=== PATIENT | male | born 1965 | race Caucasian/White ===

== ENCOUNTER 2024-05-12 16:24 | Observation (INO) | payer OTHER ==
[2024-05-12] MEDS: NITROGLYCERIN SL TABS 0.4 MG TAB SUBLINGUAL STA (16:54)
[2024-05-12] MEDS: ASPIRIN 81 MG PO STA (17:14)
[2024-05-12] MEDS: NITROGLYCERIN OINT 1 INCH/GM PACKET TOPICAL STA (17:15)
[2024-05-12 17:46] LABS: ALT 16 U/L (4-49); AST 18 U/L (17-59); African American GFR (CKD) >90 (>60 ml/min/1.73 sqM); Albumin 4.2 g/dL (3.5-5.0); Alkaline Phosphatase 73 U/L (38-126); Anion Gap 7 mmol/L; Blood Urea Nitrogen 15 mg/dL (9-20); Calcium 9.6 mg/dL (8.4-10.2); Carbon Dioxide 22 mmol/L (22-30); Chloride 106 mmol/L (98-107); Glucose 99 mg/dL (74-99); Magnesium 1.9 mg/dL (1.6-2.3); Non-African American GFR(CKD) >90 (>60 ml/min/1.73 sqM); Partial Thromboplastin Time 24.1 sec (22.0-30.0); Potassium 4.1 mmol/L (3.5-5.1); Prothrombin Time 10.6 sec (10.0-12.5); Sodium 135 mmol/L (137-145); Total Bilirubin 0.5 mg/dL (0.2-1.3); Total Protein 6.4 g/dL (6.3-8.2)
[2024-05-12 18:08] LABS: Basophils # (A) 0.1 k/uL (0-0.2); Basophils % (A) 0 %; Eosinophils # (A) 0.2 k/uL (0-0.7); Eosinophils % (A) 1 %; HCT 51.4 % (39.0-53.0); HGB 16.7 gm/dL (13.0-17.5); Lymphocytes # (A) 2.7 k/uL (1.0-4.8); Lymphocytes % (A) 21 %; MCH 32.4 pg (25.0-35.0); MCHC 32.4 g/dL (31.0-37.0); MCV 99.8 fL (80.0-100.0); Mean Platelet Volume 7.6; Monocytes # (A) 0.6 k/uL (0-1.0); Monocytes % (A) 5 %; Neutrophils # (A) 9.2 k/uL (1.3-7.7); Neutrophils % (A) 72 %; Platelet Count 302 k/uL (150-450); RBC 5.15 m/uL (4.30-5.90); RDW 12.7 % (11.5-15.5); WBC 12.9 k/uL (3.8-10.6)
--- NOTE | 2024-05-12 18:22 | XR ---
EXAMINATION TYPE: XR chest 2V DATE OF EXAM: 05/12/2024 COMPARISON: NONE HISTORY: Chest pain TECHNIQUE: Frontal and lateral views of the chest are obtained. FINDINGS: There is hyperinflation of the lungs and flattening the diaphragms consistent with COPD. The lungs are clear and there is no airspace consolidation or abnormal interstitial density. The heart, pulmonary vasculature, mediastinum and gissell appear normal. The osseous structures are intact IMPRESSION: 1. No acute cardiopulmonary disease. 2. COPD.
[2024-05-12] MEDS ORDERED: NITROGLYCERIN SL TABS 0.4 MG TAB SUBLINGUAL PRN (18:55)
--- NOTE | 2024-05-12 18:55 | ED ---
General Adult HPI - General Chief complaint: Chest Pain Stated complaint: Chest Pain,Sob Time Seen by Provider: 05/12/24 16:40 Source: patient, RN notes reviewed, old records reviewed Mode of arrival: ambulatory Limitations: no limitations - History of Present Illness Initial comments: This is a 58-year-old male who presents to the emergency department complaining of chest pain he states that started earlier today and he also became short of breath with the chest pain. Patient states he has been experiencing some intermittent chest pain for the last couple weeks. Patient describes the chest pain as pressure. Patient states the pain does radiate up to the right side of his neck as well. Patient denies any recent fever chills or cough. Patient states he is a smoker and does have a strong family history of heart disease. Patient denies any abdominal pain. Patient has back pain. Patient [place] any swelling to the legs or calf tenderness. - Related Data Home Medications Medication Instructions Recorded Confirmed No Known Home Medications 05/12/24 05/12/24 Allergies Allergy/AdvReac Type Severity Reaction Status Date / Time No Known Allergies Allergy Verified 05/12/24 17:33 Review of Systems ROS Statement: Those systems with pertinent positive or pertinent negative responses have been documented in the HPI. ROS Other: All systems not noted in ROS Statement are negative. Past Medical History Past Medical History: No Reported History History of Any Multi-Drug Resistant Organisms: None Reported Past Surgical History: No Surgical Hx Reported, Orthopedic Surgery, Tonsillectomy Past Psychological History: No Psychological Hx Reported Smoking Status: Current every day smoker Past Alcohol Use History: None Reported Past Drug Use History: Marijuana General Exam - General Exam Comments Initial Comments: GENERAL: Patient is well-developed and well-nourished. Patient is nontoxic and well- hydrated and is in mild distress. ENT: Neck is soft and supple. No significant lymphadenopathy is noted. Oropharynx is clear. Moist mucous membranes. Neck has full range of motion without eliciting any pain. EYES: The sclera were anicteric and conjunctiva were pink and moist. Extraocular movements were intact and pupils were equal round and reactive to light. Eyelids were unremarkable. PULMONARY: Unlabored respirations. Good breath sounds bilaterally. No audible rales rhonchi or wheezing was noted. CARDIOVASCULAR: There is a regular rate and rhythm without any murmurs gallops or rubs. ABDOMEN: Soft and nontender with normal bowel sounds. SKIN: Skin is clear with no lesions or rashes and otherwise unremarkable. NEUROLOGIC: Patient is alert and oriented x3. Cranial nerves II through XII are grossly intact. Motor and sensory are also intact. Normal speech, volume and content. Symmetrical smile. MUSCULOSKELETAL: Normal extremities with adequate strength and full range of motion. LYMPHATICS: No significant lymphadenopathy is noted PSYCHIATRIC: Normal psychiatric evaluation. Limitations: no limitations Course Vital Signs 05/12/24 05/12/24 05/12/24 16:37 16:52 17:17 Temperature 97.6 F Pulse Rate 79 84 75 Respiratory 18 20 20 Rate Blood Pressure 149/96 157/112 139/90 O2 Sat by Pulse 96 100 98 Oximetry 05/12/24 17:50 Temperature Pulse Rate 68 Respiratory 18 Rate Blood Pressure 117/76 O2 Sat by Pulse 97 Oximetry Medical Decision Making - Medical Decision Making EKG is interpreted by myself EKG shows a sinus rhythm at 72 bpm parables 104 QRS 101 QT interval 375 QTc of 400. There is slight ST segment elevation in leads V2, V3 and V4 which is much more indicative of repolarization Was pt. sent in by a medical professional or institution (, PA, PARKING CONTROL OFFICER, urgent care, hospital, or alf...) When possible be specific @ -No Did you speak to anyone other than the patient for history (EMS, parent, family, police, friend...)? What history was obtained from this source @ -No Did you review nursing and triage notes (agree or disagree)? Why? @ -I reviewed and agree with nursing and triage notes Were old charts reviewed (outside hosp., previous admission, EMS record, old EKG, old radiological studies, urgent care reports/EKG's, alf records)? Report findings @ -No old charts were reviewed Differential Diagnosis (chest pain, altered mental status, abdominal pain women, abdominal pain men, vaginal bleeding, weakness, fever, dyspnea, syncope, headache, dizziness, GI bleed, back pain, seizure, CVA, palpatations, mental health, musculoskeletal)? @ -Differential Chest Pain: Stable Angina, Unstable Angina, STEMI, NSTEMI Aortic Dissection, Pneumothorax, Musculoskeletal, Esophageal Spasm GERD, Cholecystitis, Pancreatitis, Zoster, this is not meant to be an all-inclusive list. EKG interpreted by me (3pts min.). @ -As above X-rays interpreted by me (1pt min.). @ -Chest x-ray shows no acute abnormality CT interpreted by me (1pt min.). @ -None done U/S interpreted by me (1pt. min.). @ -None done What testing was considered but not performed or refused? (CT, X-rays, U/S, labs)? Why? @ -None What meds were considered but not given or refused? Why? @ -None Did you discuss the management of the patient with other professionals (professionals i.e. , PA, PARKING CONTROL OFFICER, lab, RT, psych nurse, elementary school social worker, electrifier operator, teacher, consumer safety officer, case maker)? Give summary @ -I spoke with patient [facility] and they agreed to admit the patient Was smoking cessation discussed for >3mins.? @ -No Was critical care preformed (if so, how long)? @ -No Were there social determinants of health that impacted care today? How? (Homelessness, low income, unemployed, alcoholism, drug addiction, t ransportation, low edu. Level, literacy, decrease access to med. care, long term, rehab)? @ -No Was there de-escalation of care discussed even if they declined (Discuss DNR or withdrawal of care, Hospice)? DNR status @ -No What co-morbidities impacted this encounter? (DM, HTN, Smoking, COPD, CAD, Cancer, CVA, ARF, Chemo, Hep., AIDS, mental health diagnosis, sleep apnea, morbid obesity)? @ -None Was patient admitted / discharged? Hospital course, mention meds given and route, prescriptions, significant lab abnormalities, going to OR and other pertinent info. @ -Patient was given nitroglycerin sublingual and he stated he took his pain away completely. Patient's lab work came back within normal range. Patient will be admitted for the chest pain and cardiology be consulted Undiagnosed new problem with uncertain prognosis? @ -No Drug Therapy requiring intensive monitoring for toxicity (Heparin, Nitro, Insulin, Cardizem)? @ -No Were any procedures done? @ -No Diagnosis/symptom? @ -Chest pain Acute, or Chronic, or Acute on Chronic? @ -Acute Uncomplicated (without systemic symptoms) or Complicated (systemic symptoms)? @ -Complicate Side effects of treatment? @ -No Exacerbation, Progression, or Severe Exacerbation? @ -No Poses a threat to life or bodily function? How? (Chest pain, USA, DE, pneumonia, PE, COPD, DKA, ARF, appy, cholecystitis, CVA, Diverticulitis, Homicidal, Suicidal, threat to staff... and all critical care pts) @ -Yes this could lead to an DE and endorgan dysfunction - Lab Data Result diagrams: 05/12/24 17:17 05/12/24 17:17 Lab Results 05/12/24 05/12/24 05/12/24 Range/Units 17:17 17:17 17:17 WBC 12.9 H (3.8-10.6) k/uL RBC 5.15 (4.30-5.90) m/uL Hgb 16.7 (13.0-17.5) gm/dL Hct 51.4 (39.0-53.0) % MCV 99.8 (80.0-100.0) fL MCH 32.4 (25.0-35.0) pg MCHC 32.4 (31.0-37.0) g/dL RDW 12.7 (11.5-15.5) % Plt Count 302 (150-450) k/uL MPV 7.6 Neutrophils % 72 % Lymphocytes % 21 % Monocytes % 5 % Eosinophils % 1 % Basophils % 0 % Neutrophils # 9.2 H (1.3-7.7) k/uL Lymphocytes # 2.7 (1.0-4.8) k/uL Monocytes # 0.6 (0-1.0) k/uL Eosinophils # 0.2 (0-0.7) k/uL Basophils # 0.1 (0-0.2) k/uL PT 10.6 (10.0-12.5) sec INR 1.0 (<1.2) APTT 24.1 (22.0-30.0) sec Sodium 135 L (137-145) mmol/L Potassium 4.1 (3.5-5.1) mmol/L Chloride 106 (98-107) mmol/L Carbon Dioxide 22 (22-30) mmol/L Anion Gap 7 mmol/L BUN 15 (9-20) mg/dL Creatinine 0.84 (0.66-1.25) mg/dL Est GFR (CKD-EPI)AfAm >90 (>60 ml/min/1.73 sqM) Est GFR (CKD-EPI)NonAf >90 (>60 ml/min/1.73 sqM) Glucose 99 (74-99) mg/dL Calcium 9.6 (8.4-10.2) mg/dL Magnesium 1.9 (1.6-2.3) mg/dL Total Bilirubin 0.5 (0.2-1.3) mg/dL AST 18 (17-59) U/L ALT 16 (4-49) U/L Alkaline Phosphatase 73 (38-126) U/L Troponin I (0.000-0.034) ng/mL Total Protein 6.4 (6.3-8.2) g/dL Albumin 4.2 (3.5-5.0) g/dL 05/12/24 Range/Units 17:17 WBC (3.8-10.6) k/uL RBC (4.30-5.90) m/uL Hgb (13.0-17.5) gm/dL Hct (39.0-53.0) % MCV (80.0-100.0) fL MCH (25.0-35.0) pg MCHC (31.0-37.0) g/dL RDW (11.5-15.5) % Plt Count (150-450) k/uL MPV Neutrophils % % Lymphocytes % % Monocytes % % Eosinophils % % Basophils % % Neutrophils # (1.3-7.7) k/uL Lymphocytes # (1.0-4.8) k/uL Monocytes # (0-1.0) k/uL Eosinophils # (0-0.7) k/uL Basophils # (0-0.2) k/uL PT (10.0-12.5) sec INR (<1.2) APTT (22.0-30.0) sec Sodium (137-145) mmol/L Potassium (3.5-5.1) mmol/L Chloride (98-107) mmol/L Carbon Dioxide (22-30) mmol/L Anion Gap mmol/L BUN (9-20) mg/dL Creatinine (0.66-1.25) mg/dL Est GFR (CKD-EPI)AfAm (>60 ml/min/1.73 sqM) Est GFR (CKD-EPI)NonAf (>60 ml/min/1.73 sqM) Glucose (74-99) mg/dL Calcium (8.4-10.2) mg/dL Magnesium (1.6-2.3) mg/dL Total Bilirubin (0.2-1.3) mg/dL AST (17-59) U/L ALT (4-49) U/L Alkaline Phosphatase (38-126) U/L Troponin I <0.012 (0.000-0.034) ng/mL Total Protein (6.3-8.2) g/dL Albumin (3.5-5.0) g/dL Disposition Clinical Impression: Chest pain Disposition: ADMITTED IP TO THIS HOSP Referrals: Jena Ellison MD [Primary Care Provider] - 1-2 days Time of Disposition: 18:55
[2024-05-13] MEDS: NITROGLYCERIN OINT 1 INCH/GM PACKET TOPICAL SCH (01:27)
[2024-05-13] MEDS: ASPIRIN 81 MG PO SCH (08:21)
[2024-05-13] MEDS ORDERED: ASPIRIN 325 MG TAB PO SCH (09:00)
--- NOTE | 2024-05-13 09:36 | P.CRDCN ---
History of Present Illness History of present illness: HISTORY OF PRESENT ILLNESS: This is a 58-year-old male with a past medical history significant for nicotine dependence. Patient does not follow with a claims agent right of way. We have been asked to see the patient in consultation for chest pain. Patient examined at the bedside. Patient presented to the hospital with a chief complaint of chest pain. He states the pain is located on the right side of his chest and radiates into his throat. He denies any pain on the left side of his chest. He denies any shortness of breath. He states the pain is worse with deep inspiration and also with chest wall palpation. 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 DIAGNOSTICS: - EKG reveals sinus mechanism with no signs of acute ischemia. - Chest xray negative for acute process. - Laboratory data: WBC 12.9. Hemoglobin 16.7. Platelet count 302. Sodium 135. Potassium 4.1. BUN 15. Creatinine 0.84. Magnesium 1.9. Troponin negative x 3 - Current home cardiac medications include none. - No previous echocardiogram, stress test, or cardiac catheterization available in EMR for review REVIEW OF SYSTEMS: At the time of my exam: CONSTITUTIONAL: Denies fever or chills. HEENT: Denies blurred vision, vision changes, or eye pain. Denies hemoptysis CARDIOVASCULAR: Denies chest pain. Denies orthopnea. Denies PND. Denies palpita tions RESPIRATORY: Denies shortness of breath. GASTROINTESTINAL: Denies abdominal pain. Denies nausea or vomiting. HEMATOLOGIC: Denies bleeding disorders. GENITOURINARY: Denies any blood in urine. SKIN: Denies pruitis. Denies rash. PHYSICAL EXAM: VITAL SIGNS: Reviewed. GENERAL: Well-developed in no acute distress. HEENT: Head is normocephalic. Pupils are equal, round. Sclerae anicteric. Mucous membranes of the mouth are moist. Neck supple. No JVD or thyromegaly LUNGS: Respirations even and unlabored. Lungs essentially clear to auscultation bilaterally. HEART: Regular rate and rhythm. S1 and S2 heard. ABDOMEN: Soft. Nondistended. Nontender. EXTREMITIES: Normal range of motion. No clubbing or cyanosis. Peripheral pulses intact. No lower extremity edema NEUROLOGIC: Awake and alert. Oriented x 3. ASSESSMENT: Chest pain, troponin negative x 3 Nicotine dependence PLAN: An acute coronary but has been ruled out Obtain 2D echo to assess cardiac structure and function Patient to undergo stress echocardiogram today If negative, he may be discharged home from a cardiac standpoint Smoking cessation encouraged Further recommendations pending patient course Nurse practitioner note has been reviewed by physician. Signing provider agrees with the documented findings, assessment, and plan of care documented by CONSERVATION SCIENTIST as a scribe. Past Medical History Past Medical History: No Reported History History of Any Multi-Drug Resistant Organisms: None Reported Past Surgical History: No Surgical Hx Reported, Orthopedic Surgery, Tonsillectomy Past Psychological History: No Psychological Hx Reported Smoking Status: Current every day smoker Past Alcohol Use History: None Reported Past Drug Use History: Marijuana - Past Family History Mother Family Medical History: Coronary Artery Disease (CAD) Additional Family Medical History / Comment(s): pt reports his mother had open heart surgery in her 50s Father Additional Family Medical History / Comment(s): pt reports father in 80s from colon CA Medications and Allergies Home Medications Medication Instructions Recorded Confirmed Type No Known Home Medications 05/12/24 05/12/24 History Allergies Allergy/AdvReac Type Severity Reaction Status Date / Time No Known Allergies Allergy Verified 05/12/24 17:33 Physical Exam Vitals: Vital Signs Temp Pulse Pulse Resp BP BP Pulse Ox 05/13/24 03:12 98.4 F 71 18 127/75 98 05/12/24 23:38 65 05/12/24 21:47 97.7 F 65 16 125/80 98 05/12/24 21:26 97.3 F L 55 L 19 127/76 97 05/12/24 19:37 55 L 19 115/76 97 05/12/24 17:50 68 18 117/76 97 05/12/24 17:17 75 20 139/90 98 05/12/24 16:52 84 20 157/112 100 05/12/24 16:37 97.6 F 79 18 149/96 96 Intake and Output 05/12/24 05/13/24 05/13/24 22:59 06:59 14:59 Other: # Voids 2 2 Weight 56.699 kg Results 05/12/24 17:17 05/12/24 17:17 Cardiac Enzymes 05/12/24 05/12/24 05/12/24 Range/Units 17:17 17:17 20:46 AST 18 (17-59) U/L Troponin I <0.012 <0.012 (0.000-0.034) ng/mL 05/12/24 Range/Units 23:29 AST (17-59) U/L Troponin I <0.012 (0.000-0.034) ng/mL Coagulation 05/12/24 Range/Units 17:17 PT 10.6 (10.0-12.5) sec APTT 24.1 (22.0-30.0) sec CBC 05/12/24 Range/Units 17:17 WBC 12.9 H (3.8-10.6) k/uL RBC 5.15 (4.30-5.90) m/uL Hgb 16.7 (13.0-17.5) gm/dL Hct 51.4 (39.0-53.0) % Plt Count 302 (150-450) k/uL Comprehensive Metabolic Panel 05/12/24 Range/Units 17:17 Sodium 135 L (137-145) mmol/L Potassium 4.1 (3.5-5.1) mmol/L Chloride 106 (98-107) mmol/L Carbon Dioxide 22 (22-30) mmol/L BUN 15 (9-20) mg/dL Creatinine 0.84 (0.66-1.25) mg/dL Glucose 99 (74-99) mg/dL Calcium 9.6 (8.4-10.2) mg/dL AST 18 (17-59) U/L ALT 16 (4-49) U/L Alkaline Phosphatase 73 (38-126) U/L Total Protein 6.4 (6.3-8.2) g/dL Albumin 4.2 (3.5-5.0) g/dL Current Medications Generic Name Dose Route Start Last Admin Trade Name Freq PRN Reason Stop Dose Admin Aspirin 325 mg 05/13/24 09:00 Aspirin 325 Mg Tab PO DAILY GRACIELA Nitroglycerin 0.4 mg 05/12/24 18:55 Nitroglycerin Sl Tabs 0.4 Mg Tab SUBLINGUAL Q5M PRN Chest Pain Nitroglycerin 1 inch 05/13/24 00:00 05/13/24 05:52 Nitroglycerin Oint 1 Inch/Gm Packet TOPICAL Not Given Q6HR GRACIELA Intake and Output 05/12/24 05/13/24 05/13/24 22:59 06:59 14:59 Other: # Voids 2 2 Weight 56.699 kg 05/12/24 17:17 05/12/24 17:17
--- NOTE | 2024-05-13 10:23 | P.HPIM ---
History of Present Illness H&P Date: 05/13/24 Chief Complaint: Chest pain Angelo Mensah 58-year-old male presents with new onset chest pain. Patient states symptoms began 5 days ago with central rapid onset chest pain that was stabbing and burning in nature that radiated to the right side of the neck. Associated symptoms include dyspnea, nausea, indigestion. Patient states pain was intermittent and not alleviated or exacerbated by outside factors. Symptoms occurred while both at rest and while active. Currently reports dysphagia for the last 5 days and pain with both solids and liquids and has not regurgitated and has indigestion. Patient also reports an estimated 17 pound weight loss over 2-3 months and states he has a good appetite. Patient currently denies chest pain, but shortness of breath, palpitations, fever, chills, weakness or fatigue. Gen: in no apparent distress, resting comfortably in bed Eyes: PERRL, no scleral injection or icterus HENT: normocephalic, atraumatic, good hearing acuity, moist mucous membranes Neck: no tracheal deviation, full range of motion Resp: good air exchange, breathing comfortably with no accessory muscle use, no tactile fremitus CVS: good distal perfusion x 4, no pitting edema GI: soft, NTTP, ND, no hepatosplenomegaly : no suprapubic tenderness, no CVAT, ni catheter [is/not] present MSK: no clubbing, no cyanosis, no noted contractures of extremities Skin: no noted rashes, petechiae; temperature of skin is appropriate Neuro: moving all extremities without signs of weakness, CN II-XII intact Psych: cooperative, euthymic mood, insight and judgment intact All Systems reviewed and pertinent positives and negatives noted in HPI, all other symptoms are negative Past Medical History Past Medical History: No Reported History History of Any Multi-Drug Resistant Organisms: None Reported Past Surgical History: No Surgical Hx Reported, Orthopedic Surgery, Tons illectomy Past Psychological History: No Psychological Hx Reported Smoking Status: Current every day smoker Past Alcohol Use History: None Reported Past Drug Use History: Marijuana - Past Family History Mother Family Medical History: Coronary Artery Disease (CAD) Additional Family Medical History / Comment(s): pt reports his mother had open heart surgery in her 50s Father Additional Family Medical History / Comment(s): pt reports father in 80s from colon CA Medications and Allergies Home Medications Medication Instructions Recorded Confirmed Type No Known Home Medications 05/12/24 05/12/24 History Allergies Allergy/AdvReac Type Severity Reaction Status Date / Time No Known Allergies Allergy Verified 05/12/24 17:33 Physical Exam Vitals: Vital Signs Temp Pulse Pulse Resp BP BP Pulse Ox 05/13/24 07:10 97.7 F 56 L 15 129/77 98 05/13/24 03:12 98.4 F 71 18 127/75 98 05/12/24 23:38 65 05/12/24 21:47 97.7 F 65 16 125/80 98 05/12/24 21:26 97.3 F L 55 L 19 127/76 97 05/12/24 19:37 55 L 19 115/76 97 05/12/24 17:50 68 18 117/76 97 05/12/24 17:17 75 20 139/90 98 05/12/24 16:52 84 20 157/112 100 05/12/24 16:37 97.6 F 79 18 149/96 96 Intake and Output 05/12/24 05/13/24 05/13/24 22:59 06:59 14:59 Other: # Voids 2 2 Weight 56.699 kg Results CBC & Chem 7: 05/12/24 17:17 05/12/24 17:17 Labs: Abnormal Lab Results - Last 24 Hours (Table) 05/12/24 05/12/24 Range/Units 17:17 17:17 WBC 12.9 H (3.8-10.6) k/uL Neutrophils # 9.2 H (1.3-7.7) k/uL Sodium 135 L (137-145) mmol/L Thrombosis Risk Factor Assmnt - Choose All That Apply Any of the Below Risk Factors Present?: Yes Each Factor Represents 1 point: Age 41-60 years Other Risk Factors: No Other congenital or acquired thrombophilia - If yes, enter type in comment: No Thrombosis Risk Factor Assessment Total Risk Factor Score: 1 Thrombosis Risk Factor Assessment Level: Low Risk Assessment and Plan (1) Chest pain Current Visit: Yes Status: Acute Code(s): R07.9 - CHEST PAIN, UNSPECIFIED SNOMED Code(s): 93861408 Plan: Chest pain Given nitro and aspirin in ER Cardiology consulted Follow-up with telemetry - Plan for D-dimer - Negative EKG and troponins - Stress test negative - clear to d/c per cardiology Dysphagia - may have contributed to weight loss - ordered CT neck and chest - if negative plan for outpatient follow up with GI for EGD consult Smoking addiction - spoke about smoking cessation
--- NOTE | 2024-05-13 11:26 | CA ---
Stress Echo Report Angelo Mensah Age: 58 Gender: M : 1965 Exam Date: 05/13/2024 09:32 Exam Location: [facility] Ht (in): 67 Wt (lb): 125 Ordering Physician: Margaret Butler Referring Physician: [id number] Store Sales Manager: ASHUTOSH Technologist Procedure CPT: Indication: CP ICD-9 Codes: Rhythm: Patient History: Chest pain, shortness of breath and hypertension. Cardiac Medications: Medications in past 24 hours: Contrast: Definity Stress Results Protocol: Tam Total dose(mL): 2 Exercise Duration (min:sec): 10:[address] Depression (mm): Angina Score: Walker Score: METS: 11.7 Resting HR: 85 Resting BP: 145 / 89 Peak HR: 157 Peak BP: 197 / 79 Max Predicted HR: 163 96 % Max Predicted HR Target HR: 139 Double Product: 00280 Stress Summary: The patient's target heart rate was achieved BP Response: Normal Reason for Termination: Reached target heart rate or work-load Cardiac Symptoms: No symptoms ECG Analysis Resting ECG: Normal sinus rhythm, normal ECG Stress ECG: No abnormal ST/T wave changes with exercise Arrhythmia: None Echo Analysis Resting Echo: Normal resting echocardiogram. Peak Echo Analysis: Normal wall thickening and motion MEASUREMENTS (Male/Female) Normal Values CONCLUSIONS 1. Good exercise tolerance with normal electrocardiographic response to exercise 2. Normal stress echocardiogram with no evidence of stress induced ischemia Dr. David Jung MD (Electronically Signed) Final Date: 13 May 2024 11:25
[2024-05-13 11:58] LABS: Chol/HDL Ratio 4.67 Ratio; LDL Cholesterol,Calculated 117.5 mg/dL (0.0-131.0)
--- NOTE | 2024-05-13 12:26 | CT ---
EXAMINATION TYPE: CT soft tissue neck wo con CT DLP: 272.2 mGycm, Automated exposure control for dose reduction was used. DATE OF EXAM: 05/13/2024 12:13 PM COMPARISON: None. CLINICAL INDICATION:Male, 58 years old with history of dysphagia; PHH, dysphagia TECHNIQUE: Standard enhanced CT of the neck without the administration of intravenous contrast. This limits evaluation. Axial sections with coronal and sagittal reformats were obtained. FINDINGS: Brain: Visualized portions are grossly unremarkable. Orbits: Unremarkable Sinuses: Grossly unremarkable. Suprahyoid Neck: The oropharynx, oral cavity, parapharyngeal and retropharyngeal spaces are clear and symmetric within the limitations of a noncontrast exam. The nasopharynx is unremarkable within the limitations of a noncontrast exam. Infrahyoid Neck: The larynx, hypopharynx, and supraglottic area are clear and symmetric within the li mitations of a noncontrast exam. Parotid Glands: Unremarkable noncontrast appearance. Submandibular Glands: Unremarkable noncontrast appearance. Musculoskeletal: Mild degenerative disc disease changes of the visualized spine are present. The most pronounced at C4-C5. Lymph nodes: Few nonenlarged lymph nodes are seen along both anterior chains of the neck. Vascular structures: Bilateral carotid bulb calcifications. Thoracic Inlet/airway: Airway is patent. Centrilobular and paraseptal emphysematous changes within th e bilateral visualized upper lobes. Left upper lobe lateral linear scarring. Soft tissues/Thyroid: Thyroid and remainder of the soft tissues are unremarkable. Other: none. IMPRESSION 1. No CT evidence for patient's symptomology within limitations of a noncontrast exam. 2. COPD changes.
--- NOTE | 2024-05-13 12:44 | CT ---
EXAMINATION TYPE: CT chest angio for PE CT DLP: 156 mGycm, Automated exposure control for dose reduction was used. DATE OF EXAM: 05/13/2024 12:33 PM COMPARISON: Chest radiograph from same day. CLINICAL INDICATION:Male, 58 years old with history of Dyspnea; Dyspnea TECHNIQUE/CONTRAST: CTA scan of the thorax is performed with IV Contrast, patient injected with 100ml mL of Isovue 370, M IP images are created and reviewed these are created on a separate workstation.. FINDINGS: Pulmonary Artery: There is no evidence for a filling defect within the pulmonary vasculature to sugge st acute pulmonary embolism. The pulmonary artery is of normal size. Lungs/Pleura: No evidence of focal consolidation, pleural effusion or pneumothorax. Mild paraseptal e mphysema and centrilobular emphysema. Scarring in the lung apices bilaterally. Airway: Large airways are patent. Heart: Heart is within normal limits for size. Vasculature: No evidence of aortic aneurysm. Mediastinum: No gross evidence of adenopathy. Musculoskeletal: No acute osseous abnormalities Soft Tissues/lymph nodes: Unremarkable. Lower neck: No significant findings. Upper Abdomen: No significant findings. IMPRESSION: 1. No evidence of pulmonary embolism. 2. [id number] emphysema.
--- NOTE | 2024-05-13 13:32 | CA ---
Transthoracic Echo Report Name: Angelo Mensah Age: 58 Gender: M : 1965 Exam Date: 05/13/2024 09:59 Exam Location: [place] [facility] Ht (in): 65 Wt (lb): 125 Ordering Physician: Margaret Butler Attending/Referring Phys: [id number], Carrie [employer] Conveyor Operator Janelle Shearer RDCS Procedure CPT: Indications: LV function, CP Cardiac Hx: Technical Quality: Fair Contrast 1: Total Dose (mL): Contrast 2: Total Dose (mL): MEASUREMENTS (Male / Female) Normal Values 2D ECHO LV Diastolic Diameter PLAX 3.7 cm 4.2 - 5.9 / 3.9 - 5.3 cm LV Systolic Diameter PLAX 3.0 cm IVS Diastolic Thickness 1.0 cm 0.6 - 1.0 / 0.6 - 0.9 cm LVPW Diastolic Thickness 0.9 cm 0.6 - 1.0 / 0.6 - 0.9 cm LV Relative Wall Thickness 0.5 RV Internal Dim ED PLAX 1.9 cm LA Systolic Diameter LX 2.7 cm 3.0 - 4.0 / 2.7 - 3.8 cm LV Diastolic Volume MOD BP 46.3 cm??? 67 - 155 / 56 - 104 cm??? LV Systolic Volume MOD BP 21.6 cm??? 22 - 58 / 19 - 49 cm??? LV Ejection Fraction MOD BP 53.3 % >= 55 % LV Cardiac Index MOD BP 1162.8 cm???/min???m??? LV Diastolic Volume MOD 4C 50.9 cm??? LV Systolic Volume MOD 4C 25.1 cm??? LV Ejection Fraction MOD 4C 50.6 % LV Cardiac Index MOD 4C 1216.0 cm???/min???m??? LV Diastolic Length 4C 7.1 cm LV Systolic Length 4C 6.4 cm LV Diastolic Volume MOD 2C 40.2 cm??? LV Systolic Volume MOD 2C 17.6 cm??? LV Ejection Fraction MOD 2C 56.3 % LV Cardiac Index MOD 2C 1065.8 cm???/min???m??? LV Diastolic Length 2C 6.7 cm LV Systolic Length 2C 5.9 cm M-MODE Aortic Root Diameter MM 3.3 cm LA Systolic Diameter MM 2.6 cm LA Ao Ratio MM 0.8 AV Cusp Separation MM 2.0 cm DOPPLER Mitral E Point Velocity 88.0 cm/s Mitral A Point Velocity 83.7 cm/s Mitral E to A Ratio 1.1 MV Deceleration Time 251.0 ms FINDINGS Left Ventricle Left ventricular ejection fraction is estimated at 55-60%. Mildly decreased left ventricular ejection fraction. Normal left ventricular wall motion. No obvious regional wall motion abnormalities. Left ventricular cavity size normal. Right Ventricle Normal right ventricular size and function. Right ventricular systolic pressure within normal limits. Right Atrium Normal right atrial size. Left Atrium Normal left atrial size. Mitral Valve Structurally normal mitral valve. Trace mitral regurgitation. Aortic Valve Trileaflet aortic valve. No aortic stenosis. No aortic regurgitation. Tricuspid Valve Structurally normal tricuspid valve. Trace tricuspid regurgitation. Pulmonic Valve Structurally normal pulmonic valve. Trace pulmonic regurgitation. Pericardium No pericardial or pleural effusion. Aorta Normal size aortic root and proximal ascending aorta. CONCLUSIONS 1. Normal left ventricle size and systolic function 2. Trace mitral and tricuspid regurgitation Previewed by: Dr. David Jung MD (Electronically Signed) Final Date: 13 May 2024 13:31
--- NOTE | 2024-05-13 14:22 | P.DS ---
Providers Date of admission: 05/12/24 18:55 Expected date of discharge: 05/13/24 Attending physician: Yolanda Wilkinson Primary care physician: Jena Ellison - Discharge Diagnosis(es) (1) Chest pain Current Visit: Yes Status: Acute Hospital Course: Discharge diagnoses; Chest pain, acute coronary syndrome ruled out Dysphagia Weight loss Tobacco addiction Hospital course; Angelo Mensah 58-year-old male presents with new onset chest pain. Patient states symptoms began 5 days ago with central rapid onset chest pain that was stabbing and burning in nature that radiated to the right side of the neck. Associated symptoms include dyspnea, nausea, indigestion. Patient states pain was intermittent and not alleviated or exacerbated by outside factors. Symptoms occurred while both at rest and while active. Currently reports dysphagia for the last 5 days and pain with both solids and liquids and has not regurgitated and has indigestion. Patient also reports an estimated 17 pound weight loss over 2-3 months and states he has a good appetite. Patient currently denies chest pain, but shortness of breath, palpitations, fever, chills, weakness or fatigue. Patient was admitted to internal medicine service, cardiology eval the patient, ordered stress echo which was negative for any ischemia. Patient was complaining of dysphagia and weight loss, CT chest was done did not show any acute pulmonary process. CT soft tissue neck was also done did not show any pathology to explain dysphagia. Patient was counseled regarding stopping smoking and following up outpatient with GI regarding his dysphagia and weight loss. Patient will be needing endoscopic procedure outpatient to further investigate his weight loss. Being discharged in stable condition PHYSICAL EXAMINATION: GENERAL: The patient is alert and oriented x3, not in any acute distress. Well developed, well nourished. HEENT: Pupils are round and equally reacting to light. EOMI. No scleral icterus. No conjunctival pallor. Normocephalic, atraumatic. No pharyngeal erythema. No thyromegaly. CARDIOVASCULAR: S1 and S2 present. No murmurs, rubs, or gallops. PULMONARY: Chest is clear to auscultation, no wheezing or crackles. ABDOMEN: Soft, nontender, nondistended, normoactive bowel sounds. No palpable organomegaly. MUSCULOSKELETAL: No joint swelling or deformity. EXTREMITIES: No cyanosis, clubbing, or pedal edema. NEUROLOGICAL: Gross neurological examination did not reveal any focal deficits. SKIN: No rashes. Dictation was produced using [employer] dictation software. please excuse any grammatical, word or spelling errors. Patient Condition at Discharge: Good Plan - Discharge Summary New Discharge Prescriptions: No Action No Known Home Medications Discharge Medication List No Known Home Medications 05/12/24 [History] Follow up Appointment(s)/Referral(s): Jena Ellison MD [Primary Care Provider] - 1-2 days Madison Lynne MD [STAFF PHYSICIAN] - 1 Week Discharge Disposition: HOME SELF-CARE
[2024-05-13 14:53] VITALS: BP 152/89; PULSE 71; RESP 16; TEMP 98
== END 2024-05-13 15:20 | disposition home or self-care (01) ==
LOC: EC 16:24 → 6NMEDSUR 18:55
PROVIDERS: ADMIT Hospitalist; ATTEND Hospitalist
DX: R07.89 Other chest pain (principal); K30 Functional dyspepsia; R13.10 Dysphagia, unspecified; R63.4 Abnormal weight loss; Z68.1 Body mass index [BMI] 19.9 or less, adult; M54.2 Cervicalgia; M54.9 Dorsalgia, unspecified; F17.200 Nicotine dependence, unspecified, uncomplicated; Z71.6 Tobacco abuse counseling; Z82.49 Family history of ischemic heart disease and other diseases of the circulatory system
CPT/HCPCS: 99285; 36415; 93005; 93306; 93351; 80061; 80053; 83735; 84484; 85025; 85610; 85730; 71046; 70490; 71275; G0378 ×2; Q9957; Q9967

== ENCOUNTER 2024-06-13 11:45 | Day surgery (SDC) | payer SELFPAY ==
[2024-06-12 09:09] VITALS: BMI 18.3
[~2024-06-13 11:45] MED LIST: LIDOCAINE 1% (10MG/ML) FOR IV START INTRADERMA PRN
[2024-06-13 13:07] VITALS: TEMP 98.1
[2024-06-13] MEDS: IV FLUID CONTINUATION 1,000 ML IV ONE (13:10)
[2024-06-13] MEDS: LACTATED RINGERS 1,000 ML IV SCH (13:11)
[2024-06-13] MEDS ORDERED: LIDOCAINE 2% (PF) 20 MG/ML 5 ML VIAL ONE (14:28)
[2024-06-13] MEDS ORDERED: PROPOFOL 10 MG/ML 20 ML VIAL IV ONE (14:28)
--- NOTE | 2024-06-13 14:40 | P.PCN ---
Date of Procedure: 06/13/24 Procedure(s) Performed: BRIEF HISTORY: Patient is a 58-year-old, pleasant, white male scheduled for an upper endoscopy as a part of evaluation of history of GERD and intermittent dysphagia to solids for the last several months duration. He has solid and liquid food dysphagia on and off 3-4 times a week.. PROCEDURE PERFORMED: Esophagogastroduodenoscopy with biopsy and dilation. PREOPERATIVE DIAGNOSIS: Intermittent dysphagia to solids and liquids for the last several months duration IV sedation per anesthesia. PROCEDURE: After informed consent was obtained, the patient was brought into the endoscopy unit. IV sedation was administered by Anesthesia under continuous monitoring. Initially the Olympus GIF-140 video endoscope was inserted into the mouth. Esophagus intubated without any difficulty. It was gradually advanced into the stomach and duodenum and carefully examined. The bulb and the second part of the duodenum appeared normal. The scope at this time was withdrawn to the stomach, adequately insufflated with air, and upon careful examination, mucosa of the antrum, body, cardia and the fundus appeared normal. The scope was then withdrawn into the esophagus. Hiatal hernia noted. The GE junction was located at 39 cm from the incisors. The distal esophageal Schatzki's ring identified that was dilated using 20 mm TTS balloon for 30 seconds and there was some oozing noted at the site of dilation. The rest of the esophagus appeared normal. There were no erosions or ulcerations seen, multiple biopsies were done from mid and distal esophagus rule out eosinophilic esophagitis and the patient tolerated the procedure well. IMPRESSION: 1. Distal esophageal Schatzki's ring s/p balloon dilation using 20 mm TTS balloon as described above. 2. Small hiatal hernia. RECOMMENDATIONS: The findings of this examination were discussed with the patient as well as his family. He was advised to be on a clear liquid diet for 2 hours. Continue with Protonix 40 mg daily and follow antireflux measures. Follow-up in the office in 3 to 4 weeks.
[2024-06-13 14:45] VITALS: RESP 14
[2024-06-13 15:00] VITALS: BP 181/92; PULSE 57
== END 2024-06-13 15:27 | disposition home or self-care (01) ==
LOC: ORWHC2ENDO 11:45
PROVIDERS: ATTEND Internal Medicine Gastroenterology
DX: K22.2 Esophageal obstruction (principal); K21.00 Gastro-esophageal reflux disease with esophagitis, without bleeding; K44.9 Diaphragmatic hernia without obstruction or gangrene; Z80.0 Family history of malignant neoplasm of digestive organs; I10 Essential (primary) hypertension; G47.00 Insomnia, unspecified; F17.200 Nicotine dependence, unspecified, uncomplicated; Z79.899 Other long term (current) drug therapy
CPT/HCPCS: 43239; 43249